=== PATIENT | male | born 1990 | race Hispanic/Latino ===

== ENCOUNTER 2017-12-20 00:33 | Emergency (ER) | payer SELFPAY | END 2017-12-20 02:21 | disposition home or self-care (01) | LOC: EDH 00:33 | DX: S39.011A Strain of muscle, fascia and tendon of abdomen, initial encounter (principal); Z88.0 Allergy status to penicillin; X58.XXXA Exposure to other specified factors, initial encounter; Y93.89 Activity, other specified; Y92.89 Other specified places as the place of occurrence of the external cause; Y99.8 Other external cause status | CPT/HCPCS: 76870 ==

== ENCOUNTER 2020-02-26 13:14 | Emergency (ER) | payer OTHER, SELFPAY | END 2020-02-26 13:42 | disposition home or self-care (01) | LOC: EDH 13:14 | DX: R50.9 Fever, unspecified (principal); R05 Cough; M79.10 Myalgia, unspecified site; R09.89 Other specified symptoms and signs involving the circulatory and respiratory systems; Z20.828 Contact with and (suspected) exposure to other viral communicable diseases; Z88.0 Allergy status to penicillin | CPT/HCPCS: 99281 ==